=== PATIENT | male | born 1980 | race African-American/Black ===

== ENCOUNTER 2023-11-10 21:13 | Emergency (ER) | payer MEDICAID ==
[~2023-11-10] VITALS: Ht 182.9 cm; Wt 69.0 kg
[2023-11-10 21:33] VITALS: BP 140/99; PULSE 66; RESP 18; TEMP 98.4; O2SAT 98
[2023-11-10] MEDS: PERTUSS(ACELL),DIPH,TET/PF 0.5 ML SYRINGE [ADULT] IM. ONE (21:37)
[2023-11-10] MEDS ORDERED: CEPH-558 PO (22:28)
== END 2023-11-10 22:35 | disposition home or self-care (01) ==
LOC: EMS 21:16
DX: S61.217A Laceration without foreign body of left little finger without damage to nail, initial encounter (principal); W26.8XXA Contact with other sharp object(s), not elsewhere classified, initial encounter; Y93.89 Activity, other specified; Y92.89 Other specified places as the place of occurrence of the external cause; Y99.8 Other external cause status
CPT/HCPCS: 12001; 90471; 90715; 99283